=== PATIENT | female | born 1955 | race Caucasian/White ===

== ENCOUNTER 2020-06-01 00:04 | Inpatient (IN) | payer MEDICARE, BC ==
[2020-06-01] MEDS ORDERED: Acetaminophen 500 MG TAB ONE (01:58)
[2020-06-01 02:32] LABS: INR-International Normal Ratio 0.9; PTT 26.6 sec (22.9-36.1)
--- NOTE | 2020-06-01 07:01 | CON ---
DATE OF CONSULTATION: 06/01/2020 HISTORY OF PRESENT ILLNESS: The patient is a 65-year-old female with a past medical history of coronary artery disease and cardiac stenting, previously on aspirin and Plavix; pacemaker; CHF; hypertension; hyperlipidemia, who one week ago had a mechanical fall with subsequent left acetabulum fracture as well as a small left subdural and parafalcine acute hematoma. She was initially seen at the [facility]. They are treating the hip fracture conservatively and followup CT head while as Wilbert maye [place] last week showed significant improvement in her prior subdural. The patient's anticoagulation was stopped and she was eventually transitioned to rehab. The patient reports that she was doing well, however, last night had a mechanical fall with some increased headaches, was brought to [facility] for additional evaluation. She had a new noncontrast CT head which showed a new left-sided acute subdural hematoma approximately 9 mm with a very small amount of shift from left to right. The patient had a GCS of 15 and was otherwise neurologically intact. Her platelets and coags are within normal limits. PAST MEDICAL HISTORY: Congestive heart failure, coronary artery disease with prior stenting, cardiomyopathy, recent left acetabulum fracture, recent left subdural and parafalcine hematoma, pacemaker, history of rectal cancer. PAST SURGICAL HISTORY: Pacemaker defibrillator, cardiac stenting, cholecystectomy, treatment for rectal cancer. REVIEW OF SYSTEMS: Per HPI. ALLERGIES: TO LATEX, SHELLFISH, AND CEFOXITIN. PHYSICAL EXAMINATION: VITAL SIGNS: Stable. CONSTITUTIONAL: Awake and alert, in no acute distress. A and O x4. GCS 15. HEENT: Head, normocephalic and atraumatic. No obvious signs of trauma. Eyes PERRLA. ENT: [place], intact, moist. She has normal voice. NECK: Free active range of motion. Supple. CARDIAC: Regular rate and rhythm. PULMONARY: Symmetric chest expansion. No evidence of dyspnea. MUSCULOSKELETAL: She has limited range of motion of the left lower extremity due to left acetabulum fracture, but has good strength in remainder. NEUROLOGIC: A and O x4. No gross neurologic deficits. Looks somewhat limited in the left lower extremity from her hip fracture. ASSESSMENT AND PLAN: The patient has a new left subdural hematoma status post mechanical fall last night. We will plan to monitor closely with q.1 neuro checks and repeat a new noncontrast CT head approximately at 10 a.m. She has already had her anticoagulation that she was on previously discontinued one week ago and we will continue to keep her off any of these medications. If her followup CT is stable, she may be able to transition back to a rehab facility later today or tomorrow. I have discussed this plan with Dr. Brady and we will follow her new imaging results closely. Job ID: [id number]
--- NOTE | 2020-06-01 07:50 | HP ---
REQUESTING PHYSICIAN: Dr. Goodrich. ATTENDING SURGEON: Dr. Booth. CONSULTATION: Neurosurgery, Dr. Brady. HISTORY OF PRESENT ILLNESS: The patient is a 65-year-old woman, who was brought to our facility from [facility], where she was there status post a nonoperative hip fracture. The patient reportedly tripped last night while using her walker and fell hitting her head. She underwent a CT exam there and was found to have a subdural hematoma, at which time, she was transferred to our facility for evaluation for admission and obtain neurosurgical consultations. Of note, the patient had a previous subdural hematoma on 05/23/2020, and at that time, she was on Effient for her recent cardiac stent placement in January. The patient was doing well at rehab when she fell. She was actually pending discharge either today or tomorrow. She denied loss of consciousness. She denies nausea or vomiting. ALLERGIES: MOXIFLOXACIN. CURRENT MEDICATIONS: 1. Coreg 6.25 mg twice daily. 2. Multiple vitamins. 3. Lipitor 80 mg once a day. 4. Depakote 500 mg b.i.d. 5. Fluticasone propionate nasal two sprays in both nostrils daily. 6. Lasix 20 mg twice daily. 7. Macrobid twice daily for seven days, started on 05/28 for UTI. 8. Oxybutynin chloride 5 mg once a day. 9. Oxycodone 5 mg twice a day as needed. 10. Protonix 40 mg daily. 11. Bactrim DS twice daily for seven days, started on 05/31/2020. PAST MEDICAL HISTORY: Coronary artery disease, hypertension, intracranial hemorrhage, colorectal cancer, CHF, and hyperlipidemia. PAST SURGICAL HISTORY: Pacemaker placement, stent placement, and colorectal surgery for cancer. SOCIAL HISTORY: The patient denies drug, tobacco, or alcohol use. She lives with her spouse on a ranch in the [place]. REVIEW OF SYSTEMS: A 10-point review of systems is negative as otherwise stated. PHYSICAL EXAMINATION: VITAL SIGNS: Blood pressure 131/67, heart rate 72, respirations 16, oxygen saturation 95% on room air, and temperature is 98.3. GENERAL: The patient is resting comfortably in bed. She is awake, alert, conversant, and appropriate. Her [place] Coma Scale is 15. HEENT: Head is normocephalic and atraumatic. Eyes, extraocular motion intact. PERRLA bilaterally. Ears are atraumatic without discharge. Nose is atraumatic without discharge. Oropharynx is clear. NECK: Nontender. Trachea is midline with no JVD. CHEST: Clear to auscultation with good inspiratory and expiratory effort. HEART: Regular rate and rhythm. ABDOMEN: Soft, flat, and nontender with active bowel sounds. PELVIS: Stable with some tenderness to palpation to her hips secondary to her recent injury. EXTREMITIES: Neurovascularly intact x4. BACK: Nontender and atraumatic. LABORATORY FINDINGS: White blood cell count 9.7, hemoglobin 12.6, hematocrit 36.4, platelets 328. There are no recent chemistries. PT 12.0, INR 0.9, PTT 26. Urinalysis, trace ketones and otherwise negative. RADIOGRAPHIC REPORT: CT of the brain without contrast shows an acute subdural hematoma overlying the left cerebral convexity with 2 mm of left to right midline shift. ASSESSMENT: 1. Status post ground level fall. 2. Acute left subdural hematoma. 3. Left acetabular fracture, treated nonoperatively. 4. History of hypertension, coronary artery disease with stent placement in January. 5. History of hypertension, hyperlipidemia, pacemaker placement, colorectal surgery for cancer, congestive heart failure. PLAN: Plan will be to admit the patient to the surgical floor. She was held in the emergency department due to bed status for q.1 hour checks. Due to her stability, the neuro checks have been moved to q.2 hours with a repeat head CT plan for 10 a.m. The patient was evaluated by fermin Oconnell in the emergency department with me and his plan was agreed upon. She has discussed this plan with Dr. Brady and Dr. Booth has been notified prior to this dictation of this patient also. The patient will be evaluated once again this morning during rounds. The patient will have a clear liquid diet until her CT scan is evaluated. She will have pulmonary toilet, gastritis, mechanical VTE prophylaxis and non-narcotic pain medications. Job ID: [id number]
--- NOTE | 2020-06-01 09:30 | CT ---
CT Brain WO Con: 06/01/2020 9:15 AM CLINICAL HISTORY: History of subdural hematoma and fall. IMAGING TECHNIQUE: Multiple CT images were obtained of the brain without IV contrast. COMPARISON: CT the brain dated May 31, 2020 at 11:47 PM FINDINGS: BRAIN: Evidence of acute infarct: None. Evidence of chronic ischemic change:None. Evidence of intracranial hemorrhage: The subdural hematoma overlying the left cerebral convexity is largely stable measuring up to 8.6 mm. Evidence of brain volume loss:None. Evidence of midline shift: There is stable [id number] midline shift of 2 mm Ventricles: Normal. No hydrocephalus. SKULL: Intact. VISUALIZED PARANASAL SINUSES: Clear. MASTOID AIR CELLS: Clear. EXTRACRANIAL SOFT TISSUES: Normal. IMPRESSION: Stable left cerebral convexity subdural hematoma with [id number] midline shift of 2 mm.
[2020-06-01] MEDS ORDERED: Fentanyl 100 MCG/2 ML VIAL SLOW IVP SCH (09:35)
[2020-06-01] MEDS ORDERED: Ondansetron PF 4 MG/2 ML Vial IVP PRN (09:35)
[2020-06-01] MEDS ORDERED: Ondansetron ODT 4 MG TAB PO PRN (09:35)
[2020-06-01] MEDS ORDERED: Dextrose 5% in Water 1,000 ML IV PRN (09:35)
[2020-06-01] MEDS ORDERED: Sodium Chloride 0.9% 1,000 ML IV SCH (09:35)
[2020-06-01] MEDS ORDERED: Dextrose 50% Abboject 50 ML SYRINGE SLOW IVP PRN (09:35)
[2020-06-01] MEDS: Famotidine 20 MG TAB PO SCH ×2 (10:26→20:44)
[2020-06-01] MEDS: Acetaminophen 500 MG TAB PO SCH ×3 (10:26→22:06)
[2020-06-01 10:54] VITALS: BMI 28.0
[2020-06-01] MEDS: traMADol HCl 50 MG TAB PO PRN ×3 (11:21→23:41)
--- NOTE | 2020-06-01 12:20 | PRG ---
DATE OF SERVICE: 06/01/2020 SUBJECTIVE: The patient was seen and examined. I agree with Vidya Santiago's evaluation on 06/01/2020. The patient is a 65-year-old woman, who had a fall a week ago, sustaining a hip fracture as well as a small subdural hematoma. She was evaluated by Neurosurgery and treated conservatively. Last night, she had another fall. She is currently neurologically intact and complaining of only headache. CT scan reveals a left-sided acute subdural hematoma slightly worse than previously. A followup CT scan was stable. IMPRESSION AND PLAN: Traumatic subdural hematoma. No surgical plans at this time. No need for further imaging while in-house and she can be mobilized to dismissal. Avoid antiplatelet agents or anticoagulation and I will arrange for followup CT scan in 2 weeks. Job ID: [id number]
[2020-06-01 13:10] LABS: SARS-CoV-2 MS2 Positive; SARS-CoV-2 N Gene Negative; SARS-CoV-2 S Gene Negative; SARS-CoV-2 by NAA Not Detected (NotDetected); SARS-CoV-2 orf1ab Negative
[2020-06-01] MEDS ORDERED: Furosemide 20 MG TAB PO SCH (16:15)
[2020-06-01] MEDS: Divalproex Sodium DR 500 MG TAB PO SCH (19:06)
[2020-06-01] MEDS: Furosemide 20 MG TAB PO SCH (20:45)
[2020-06-02] MEDS: Acetaminophen 500 MG TAB PO SCH ×2 (04:01→10:27)
[2020-06-02] MEDS: Divalproex Sodium DR 500 MG TAB PO SCH (04:47)
[2020-06-02] MEDS: traMADol HCl 50 MG TAB PO PRN ×2 (05:39→12:57)
[2020-06-02] MEDS: Famotidine 20 MG TAB PO SCH (09:01)
[2020-06-02] MEDS: Furosemide 20 MG TAB PO SCH (09:01)
[2020-06-02 13:50] VITALS: BP 139/77; TEMP 98.2
--- NOTE | 2020-06-02 17:56 | DIS ---
DATE OF ADMISSION: 06/01/2020 DATE OF DISCHARGE: 06/02/2020 This is Lindsey Davis NP dictating a report for Dr. Merchant. DISCHARGE ATTENDING: Dr. Merchant. CONSULTS: Neurosurgery, Dr. Brady. PROCEDURES: None. PRIMARY DIAGNOSES: Status post ground level fall; acute left subdural hematoma; left acetabular fracture, treated nonoperatively from previous admission. SECONDARY DIAGNOSES: History of hypertension, coronary artery disease with stent placement in January, hyperlipidemia, pacemaker, colorectal surgery, congestive heart failure, and colorectal cancer. DISCHARGE MEDICATIONS: 1. Bactrim DS one tablet p.o. b.i.d. for 6 more days, #12 for urinary tract infection. 2. Depakote 1 tablet p.o. q.4 hours. 3. Tramadol 50 mg p.o. q.6 hours p.r.n. pain, #30, no refills. 4. Acetaminophen 1000 mg p.o. q.6 hours. 5. Vitamin C 1000 mg p.o. daily. 6. Flonase nasal spray two sprays each naris daily. 7. Lasix 20 mg p.o. b.i.d. 8. B12, 1000 mcg p.o. daily. 9. Multivitamin one tablet daily. 10. Protonix 40 mg p.o. daily. 11. MiraLAX as needed for constipation. No discontinued medications. HISTORY OF PRESENT ILLNESS AND HOSPITAL COURSE: This is a 65-year-old female, who was brought to the emergency department for evaluation after a trip and fall. The patient was currently at [facility] for a nonoperative hip fracture. The patient reports she was using her walker when she tripped and fell, hitting her head. The patient underwent evaluation and was found to have a subdural hematoma. Neurosurgery was consulted. The patient had a previous subdural hematoma on 05/23/2020 while she was on Effient for her cardiac stent, which was done in January. There was no loss of consciousness and the patient denied any nausea or vomiting. The patient's Neva Coma Scale was 15 and remain 15 during her hospital stay. The patient had a repeat head CT, which was stable. The patient was able to ambulate with physical therapy without any difficulties. Physical therapy recommended discharge home as long as the patient had family members with her 20/02. The patient was also evaluated by speech therapy, in which she had some very mild cognition deficits. Speech Therapy also recommended the patient was safe for discharge home. The patient's daughter was at bedside during the exam. Daughter and the patient both ensured she would have someone with her 20/02. A Home Health consult was placed for physical and occupational therapy. On the day of discharge, the patient's exam was unremarkable including cardiopulmonary and GI exam. The patient's vital signs were stable. The patient was deemed stable for discharge home. The patient was instructed to avoid all antiplatelets and anticoagulation until she has a followup CT scan done in 2 weeks. DISPOSITION: Stable. DISCHARGE INSTRUCTIONS: 1. Location: Home with home health physical therapy and occupational therapy. 2. Diet: Regular diet. 3. Activity: As tolerated. 4. Followup: Follow up with Dr. Brady in 2 weeks with a repeat head CT. Again, avoid all antiplatelets and anticoagulations until followup. No need to follow up with Trauma Services. On the day of discharge, the patient's [place] Coma Scale remains 15. Job ID: [id number]
[2020-06-02] MEDS ORDERED: Sulfameth/Trimethoprim DS 800-160mg TAB PO SCH (21:00)
--- NOTE | 2020-06-05 14:20 | PDOC.BPN ---
- Brief Progress Note Encounter Date: 06/02/20 The patient had an unexpected recovery allowing her for discharge sooner than anticipated.
== END 2020-06-02 15:55 | disposition home health service (06) | DRG 86 ==
LOC: ERS 00:04 → ERHOLD 02:23 → SURG A 09:29
PROVIDERS: ADMIT Neurological Surgery; ATTEND Neurological Surgery
DX: S06.5X0A Traumatic subdural hemorrhage without loss of consciousness, initial encounter (principal); I42.9 Cardiomyopathy, unspecified; I50.9 Heart failure, unspecified; I25.10 Atherosclerotic heart disease of native coronary artery without angina pectoris; R40.2362 Coma scale, best motor response, obeys commands, at arrival to emergency department; R40.2142 Coma scale, eyes open, spontaneous, at arrival to emergency department; R40.2252 Coma scale, best verbal response, oriented, at arrival to emergency department; W01.198A Fall on same level from slipping, tripping and stumbling with subsequent striking against other object, initial encounter; Z20.828 Contact with and (suspected) exposure to other viral communicable diseases; I11.0 Hypertensive heart disease with heart failure; E78.5 Hyperlipidemia, unspecified; Z95.5 Presence of coronary angioplasty implant and graft; Z85.048 Personal history of other malignant neoplasm of rectum, rectosigmoid junction, and anus; Z95.810 Presence of automatic (implantable) cardiac defibrillator; Z90.49 Acquired absence of other specified parts of digestive tract; Z88.1 Allergy status to other antibiotic agents; Z91.013 Allergy to seafood
CPT/HCPCS: 36415; 70450; 85610; 85730; 87635; 99285; U0003

== ENCOUNTER 2022-10-14 07:18 | Day surgery (SDC) | payer MEDICARE, BC ==
[2022-10-12 12:11] VITALS: BMI 25.7
== END 2022-10-14 11:25 | disposition home or self-care (01) ==
LOC: SDC 07:18
PROVIDERS: ATTEND Internal Medicine Gastroenterology
PROC: 0DJ08ZZ Inspection of Upper Intestinal Tract, Via Natural or Artificial Opening Endoscopic (ICD-10-PCS; principal; 2022-10-14)
DX: K21.9 Gastro-esophageal reflux disease without esophagitis (principal); I25.10 Atherosclerotic heart disease of native coronary artery without angina pectoris; I11.0 Hypertensive heart disease with heart failure; I50.9 Heart failure, unspecified; E78.00 Pure hypercholesterolemia, unspecified; Z85.048 Personal history of other malignant neoplasm of rectum, rectosigmoid junction, and anus; Z92.3 Personal history of irradiation; Z92.21 Personal history of antineoplastic chemotherapy; Z98.84 Bariatric surgery status; Z88.1 Allergy status to other antibiotic agents; Z95.5 Presence of coronary angioplasty implant and graft; Z95.810 Presence of automatic (implantable) cardiac defibrillator; Z91.040 Latex allergy status; Z91.013 Allergy to seafood; Z79.899 Other long term (current) drug therapy

== ENCOUNTER 2022-12-15 06:34 | Day surgery (SDC) | payer MEDICARE, BC ==
[2022-12-13 15:44] VITALS: BMI 25.5
[2022-12-15] MEDS ORDERED: PROPOFOL 200 MG/20 ML VIAL ONE (09:10)
== END 2022-12-15 10:15 | disposition home or self-care (01) ==
LOC: SDC 06:34
PROVIDERS: ATTEND Internal Medicine Gastroenterology
PROC: 0DBH8ZX Excision of Cecum, Via Natural or Artificial Opening Endoscopic, Diagnostic (ICD-10-PCS; principal; 2022-12-15)
DX: Z12.11 Encounter for screening for malignant neoplasm of colon (principal); D12.0 Benign neoplasm of cecum; K57.30 Diverticulosis of large intestine without perforation or abscess without bleeding; I11.0 Hypertensive heart disease with heart failure; I50.9 Heart failure, unspecified; I25.10 Atherosclerotic heart disease of native coronary artery without angina pectoris; E78.00 Pure hypercholesterolemia, unspecified; Z85.048 Personal history of other malignant neoplasm of rectum, rectosigmoid junction, and anus; Z79.899 Other long term (current) drug therapy; Z88.1 Allergy status to other antibiotic agents; Z91.013 Allergy to seafood; Z91.040 Latex allergy status; Z90.49 Acquired absence of other specified parts of digestive tract; Z95.5 Presence of coronary angioplasty implant and graft; Z95.810 Presence of automatic (implantable) cardiac defibrillator
CPT/HCPCS: 88305; J2704

== ENCOUNTER 2023-05-04 13:56 | Outpatient (CLI) | payer MEDICARE, BC | END 2023-05-04 13:57 | disposition home or self-care (01) | LOC: BICMAMMO 13:56 | PROVIDERS: ATTEND Internal Medicine | DX: Z13.820 Encounter for screening for osteoporosis (principal); Z12.31 Encounter for screening mammogram for malignant neoplasm of breast; M85.89 Other specified disorders of bone density and structure, multiple sites; Z80.3 Family history of malignant neoplasm of breast | CPT/HCPCS: 77063; 77067; 77080 ==